=== PATIENT | female | born 1980 | race Two or more races ===

== ENCOUNTER 2022-05-01 12:14 | Emergency (ER) | payer MEDICAID, OTHER ==
[~2022-05-01] VITALS: Ht 154.9 cm; Wt 54.4 kg
[2022-05-01 16:49] VITALS: BP 122/85
[2022-05-01] MEDS ORDERED: CYCL-837 PO (16:55)
[2022-05-01] MEDS ORDERED: IBUP800T27 PO (16:55)
[2022-05-01] MEDS ORDERED: MECLIZINE HCL 25 MG TAB PO ONE (17:15)
== END 2022-05-01 17:15 | disposition home or self-care (01) ==
LOC: EDBD 12:14 → ER 12:14
DX: S16.1XXA Strain of muscle, fascia and tendon at neck level, initial encounter (principal); S39.012A Strain of muscle, fascia and tendon of lower back, initial encounter; R51.9 Headache, unspecified; F17.210 Nicotine dependence, cigarettes, uncomplicated; V43.52XA Car driver injured in collision with other type car in traffic accident, initial encounter; Y93.89 Activity, other specified; Y92.410 Unspecified street and highway as the place of occurrence of the external cause; Y99.8 Other external cause status
CPT/HCPCS: 70450; 72125; 99284; J8597